=== PATIENT | male | born 1965 | race Caucasian/White ===

== ENCOUNTER 2017-05-18 15:46 | Emergency (ER) | payer BC ==
[~2017-05-18] VITALS: Ht 185.4 cm; Wt 91.5 kg
[~2017-05-18 15:46] MED LIST: ONDA4TAB7 SL
[2017-05-18 15:48] VITALS: TEMP 36.9; Ht 185.4 cm; Wt 91.5 kg
[2017-05-18] MEDS: ONDANSETRON INJ 2 MG/ML 2 ML VIAL IV STA ×2 (15:59→16:51)
[2017-05-18] MEDS ORDERED: SODIUM CHLORIDE 0.9% 1000ML 1,000 ML IV STA (15:59)
[2017-05-18] MEDS ORDERED: MoRPHine SULFATE 10 MG/ML CARP/VIAL IV STA (15:59)
[2017-05-18] MEDS ORDERED: OPTIRAY 320 IV PRN (16:15)
[2017-05-18] MEDS ORDERED: ACET-1256 PO (16:28)
[2017-05-18 16:55] LABS: BASO % 0.4 %; BASO ABS # 0.03 K/uL (0-0.2); COMPLETE YES; EOS % 1.5 %; IG% 0.1 %; LYMPH % 16.8 %; LYMPH ABS # 1.14 K/uL (1.2-3.4); MEAN CELL VOLUME 87.6 fL (80-100); MEAN CORPUSCULAR HEMOGLOBIN 30.8 pg (25-34); MEAN CORPUSCULAR HGB CONC 35.1 g/dl (32-36); MEAN PLATELET VOLUME 9.6 fL (7.4-10.4); MONO % 9.6 %; NEUT % 71.6 %; PLATELET COUNT 257 K/uL (130-400); RED BLOOD COUNT 5.82 M/uL (4.7-6.1)
[2017-05-18 17:14] LABS: BUN/CREATININE RATIO 10.4 (10-20); CALCIUM 9.8 mg/dl (8.5-10.1); CREATININE 1.22 mg/dl (0.60-1.40); POTASSIUM 3.1 mmol/L (3.5-5.1)
--- NOTE | 2017-05-18 17:56 | DIAGNOSTIC IMAGING REPORT ---
ABD/PELVIS IV CONTRAST ONLY HISTORY: 52 years-old Male periumbilical abd pain acute periumbilical abdominal pain. Initial exam. COMPARISON: None available TECHNIQUE: Multiple axial CT images of the abdomen and pelvis were obtained following the intravenous administration of 116 mL Optiray 320. A dose lowering technique was used consistent with the principals of SURESH. FINDINGS: Cardiac chambers are mildly enlarged. Coronary arterial calcifications are present. Imaged inferior lung bases are generally clear with a few scattered subcentimeter calcified granulomas. Subsegmental atelectasis is seen dependently. 2 mm noncalcified nodule of the right lower lobe on image 7 series 3 is noted, likely benign. No pneumoperitoneum. The liver, spleen, gallbladder, and right adrenal gland are within normal limits. Thickening of the left adrenal gland suggesting adrenal hyperplasia. There is an indeterminate ovoid circumscribed low attenuating 10 x 6 mm cystic-appearing structure in the region of the uncinate process pancreas on image 147 series 3. No pancreatic ductal dilation or associated inflammatory stranding. No intrahepatic biliary ductal dilation. Kidneys and ureters are within normal limits. Probable cyst of the superior pole left kidney is seen, 5 mm. Enhancing tissue at the level of the urinary bladder base suggests prostatic hypertrophy. Mild wall thickening of the bladder noted. There is increased attenuation within the region of the right ureterovesicular junction of the posterior bladder on image 35 series 3 suggests ureteral jet. Moderate atherosclerotic plaquing of the abdominal aorta. No aneurysm identified. Note is made of retroaortic left renal vein. No bulky adenopathy. No bowel obstruction or focal bowel wall thickening. Moderate to extensive diverticulosis of the sigmoid colon without evidence of acute diverticulitis. The appendix is nicely seen on image 340 of series 3 and appears normal. No evidence of acute appendicitis. Mild rectal wall thickening without surrounding inflammatory stranding. Small fat filled periumbilical hernia, diastases 1.2 cm. Degenerative changes of the bilateral SI joints. There is facet arthrosis of the lower lumbar spine which is at least moderate. Posterior disc osteophyte complex at L4-L5 cause at least mild central canal narrowing. IMPRESSION: 1. Mild rectal wall thickening may be secondary to nondistention. No associated inflammatory stranding to suggest proctitis. This could be correlated with direct visualization. 2. Moderate to extensive sigmoid diverticulosis without CT evidence of acute diverticulitis. 3. Normal appendix. 4. Prostamegaly with mild urinary bladder wall thickening, possibly related to sequela of chronic bladder outlet obstruction. Correlate with urinalysis. 5. Cystic appearing lesion of the uncinate process pancreas, 10 x 6 mm. This may reflect a sidebranch IPMN, however is nonspecific. Follow-up abdominal MRI in one year is recommended according to the [employer] guidelines. The above report was generated using voice recognition software. It may contain grammatical, syntax or spelling errors. Electronically signed by: Baltazar Paris M.D. 05/18/2017 5:55 PM Dictated Date/Time: 05/18/2017 5:45 PM
[2017-05-18] MEDS ORDERED: POTASSIUM CHLORIDE 10 MEQ TABCR PO STA (18:03)
[2017-05-18] MEDS ORDERED: SIMV20TA2 PO (18:10)
[2017-05-18] MEDS ORDERED: ATEN-175 PO (18:10)
[2017-05-18] MEDS ORDERED: AMLO-114 PO (18:10)
[2017-05-18] MEDS ORDERED: LISI40TA PO (18:10)
[2017-05-18 18:11] LABS: URINE APPEARANCE CLEAR (CLEAR); URINE BILIRUBIN NEG (NEG); URINE COLOR YELLOW; URINE NITRITE NEG (NEG); URINE SPECIFIC GRAVITY 1.017 (1.000-1.030); UROBILINOGEN NEG (NEG); ZZUR CULT IF INDIC CLEAN CATCH NO
[2017-05-18 18:28] LABS: MANUAL MICROSCOPIC REQUIRED? NO; REVIEW REQ? NO
[2017-05-18] MEDS ORDERED: ONDA4TAB65 PO (19:06)
[2017-05-18] MEDS ORDERED: ONDANSETRON HOME PACK 4MG OD TAB PO ONE (19:15)
[2017-05-18 19:29] VITALS: BP 170/99; PULSE 78; O2SAT 99
--- NOTE | 2017-05-18 19:35 | EMERGENCY ROOM VISIT NOTE ---
History Report prepared by Troyibkhloe: Ministerio Garrido Under the Supervision of: Dr. Tyrese Gonzalez D.O. First contact with patient: 15:51 Chief Complaint: ABDOMINAL PAIN Stated Complaint: STOMACH PAINS-PHYSICIAN REFERRED History of Present Illness The patient is a 52 year old male who presents to the Emergency Room with complaints of waxing and waning abdominal "pressure" beginning yesterday. He also complains of nausea. He notes he feels a gate has to have a bowel movement. He has had three episodes of diarrhea. The patient has no history of similar symptoms. He denies any vomiting, groin pain, or fevers. He rates his current pain as a 6/10 in severity, but states that it was a "20/10" last night. The patient called his PCP today and was referred to the ED. He notes that he had a teriyaki sandwich before his symptoms began. He states "it felt like I was 9 months ". Patient denies any chest pain, shortness breath , headache, change in vision, or urinary symptoms. No cough or runny nose. No previous abdominal surgeries. Source of History: patient Onset: Yesterday Position: abdomen Symptom Intensity: 6/10 Timing: waxes/wanes Associated Symptoms: + nausea, + diarrhea (three episodes), No fevers, No vomiting Note: The patient denies any groin pain. Review of Systems See HPI for pertinent positives & negatives. A total of 10 systems reviewed and were otherwise negative. Past Medical & Surgical Medical Problems: (1) No pertinent past medical history Family History Patient reports no known family medical history. Social History Smoking Status: Never Smoker Alcohol Use: occasionally Drug Use: none Occupation Status: employed Current/Historical Medications Scheduled Acetaminophen (Tylenol), 1,000 MG PO Q6 Amlodipine (Norvasc), 10 MG PO DAILY Atenolol (Tenormin), 100 MG PO DAILY Lisinopril (Zestril), 40 MG PO DAILY Simvastatin (Zocor), 20 MG PO QPM Scheduled PRN Ondansetron Hcl (Zofran), 4 MG PO TID PRN for Nausea Allergies Coded Allergies: Azithromycin (Verified Allergy, Unknown, Vomiting, 03/21/15) Reported by PT Physical Exam Vital Signs Date Time Temp Pulse Resp B/P (MAP) Pulse Ox O2 Delivery O2 Flow Rate FiO2 05/18/17 19:29 78 20 170/99 99 Room Air 05/18/17 19:25 20 170/99 98 05/18/17 18:00 78 20 176/88 98 05/18/17 17:19 60 20 172/99 98 Room Air 05/18/17 15:48 36.9 83 18 155/121 97 Room Air Physical Exam GENERAL: Sitting up in bed, disheveled, minimal distress, holding abdomen. EYE EXAM: normal conjunctiva. OROPHARYNX: no exudate, no erythema, lips, buccal mucosa, and tongue normal and mucous membranes are moist NECK: supple, no nuchal rigidity, no adenopathy, non-tender LUNGS: Clear to auscultation. Normal chest wall mechanics HEART: no murmurs, S1 normal and S2 normal ABDOMEN: abdomen soft, normo-active bowel sounds, no masses, no rebound or guarding. Tender to palpation in the umbilical area. BACK: Back is symmetrical on inspection and there is no deformity, no midline tenderness, no CVA tenderness. SKIN: no rashes and no bruising UPPER EXTREMITIES: upper extremities are grossly normal. LOWER EXTREMITIES: No pitting edema. NEURO EXAM: Normal sensorium, cranial nerves II-XII grossly intact, normal speech, no gross weakness of arms, no gross weakness of legs. Medical Decision & Procedures ER Provider Diagnostic Interpretation: CT:Per my review, radiologist interpretation. ABD/PELVIS IV CONTRAST ONLY FINDINGS: Cardiac chambers are mildly enlarged. Coronary arterial calcifications are present. Imaged inferior lung bases are generally clear with a few scattered subcentimeter calcified granulomas. Subsegmental atelectasis is seen dependently. 2 mm noncalcified nodule of the right lower lobe on image 7 series 3 is noted, likely benign. No pneumoperitoneum. The liver, spleen, gallbladder, and right adrenal gland are within normal limits. Thickening of the left adrenal gland suggesting adrenal hyperplasia. There is an indeterminate ovoid circumscribed low attenuating 10 x 6 mm cystic-appearing structure in the region of the uncinate process pancreas on image 147 series 3. No pancreatic ductal dilation or associated inflammatory stranding. No intrahepatic biliary ductal dilation. Kidneys and ureters are within normal limits. Probable cyst of the superior pole left kidney is seen, 5 mm. Enhancing tissue at the level of the urinary bladder base suggests prostatic hypertrophy. Mild wall thickening of the bladder noted. There is increased attenuation within the region of the right ureterovesicular junction of the posterior bladder on image 35 series 3 suggests ureteral jet. Moderate atherosclerotic plaquing of the abdominal aorta. No aneurysm identified. Note is made of retroaortic left renal vein. No bulky adenopathy. No bowel obstruction or focal bowel wall thickening. Moderate to extensive diverticulosis of the sigmoid colon without evidence of acute diverticulitis. The appendix is nicely seen on image 340 of series 3 and appears normal. No evidence of acute appendicitis. Mild rectal wall thickening without surrounding inflammatory stranding. Small fat filled periumbilical hernia, diastases 1.2 cm. Degenerative changes of the bilateral SI joints. There is facet arthrosis of the lower lumbar spine which is at least moderate. Posterior disc osteophyte complex at L4-L5 cause at least mild central canal narrowing. IMPRESSION: 1. Mild rectal wall thickening may be secondary to nondistention. No associated inflammatory stranding to suggest proctitis. This could be correlated with direct visualization. 2. Moderate to extensive sigmoid diverticulosis without CT evidence of acute diverticulitis. 3. Normal appendix. 4. Prostamegaly with mild urinary bladder wall thickening, possibly related to sequela of chronic bladder outlet obstruction. Correlate with urinalysis. 5. Cystic appearing lesion of the uncinate process pancreas, 10 x 6 mm. This may reflect a sidebranch IPMN, however is nonspecific. Follow-up abdominal MRI in one year is recommended according to the [employer] guidelines. The above report was generated using voice recognition software. It may contain grammatical, syntax or spelling errors. Electronically signed by: Baltazar Paris M.D. 05/18/2017 5:55 PM Laboratory Results 05/18/17 16:45 Red Blood Count 5.82, Mean Corpuscular Volume 87.6, Mean Corpuscular Hemoglobin 30.8, Mean Corpuscular Hemoglobin Concent 35.1, Mean Platelet Volume 9.6, Neutrophils (%) (Auto) 71.6, Lymphocytes (%) (Auto) 16.8, Monocytes (%) (Auto) 9.6, Eosinophils (%) (Auto) 1.5, Basophils (%) (Auto) 0.4, Neutrophils # (Auto) 4.87, Lymphocytes # (Auto) 1.14, Monocytes # (Auto) 0.65, Eosinophils # (Auto) 0.10, Basophils # (Auto) 0.03 05/18/17 16:45 Test 05/18/17 16:45 05/18/17 17:20 White Blood Count 6.80 K/uL (4.8-10.8) Red Blood Count 5.82 M/uL (4.7-6.1) Hemoglobin 17.9 g/dL (14.0-18.0) Hematocrit 51.0 % (42-52) Mean Corpuscular Volume 87.6 fL (80-100) Mean Corpuscular Hemoglobin 30.8 pg (25-34) Mean Corpuscular Hemoglobin Concent 35.1 g/dl (32-36) Platelet Count 257 K/uL (130-400) Mean Platelet Volume 9.6 fL (7.4-10.4) Neutrophils (%) (Auto) 71.6 % Lymphocytes (%) (Auto) 16.8 % Monocytes (%) (Auto) 9.6 % Eosinophils (%) (Auto) 1.5 % Basophils (%) (Auto) 0.4 % Neutrophils # (Auto) 4.87 K/uL (1.4-6.5) Lymphocytes # (Auto) 1.14 K/uL (1.2-3.4) Monocytes # (Auto) 0.65 K/uL (0.11-0.59) Eosinophils # (Auto) 0.10 K/uL (0-0.5) Basophils # (Auto) 0.03 K/uL (0-0.2) RDW Standard Deviation 40.5 fL (36.4-46.3) RDW Coefficient of Variation 12.8 % (11.5-14.5) Immature Granulocyte % (Auto) 0.1 % Immature Granulocyte # (Auto) 0.01 K/uL (0.00-0.02) Anion Gap 6.0 mmol/L (3-11) Est Creatinine Clear Calc Drug Dose 78.2 ml/min Estimated GFR () 77.4 Estimated GFR (Non- 66.8 BUN/Creatinine Ratio 10.4 (10-20) Calcium Level 9.8 mg/dl (8.5-10.1) Total Bilirubin 0.6 mg/dl (0.2-1) Direct Bilirubin 0.2 mg/dl (0-0.2) Aspartate Amino Transf (AST/SGOT) 18 U/L (15-37) Alanine Aminotransferase (ALT/SGPT) 35 U/L (12-78) Alkaline Phosphatase 94 U/L (45-117) Total Protein 8.9 gm/dl (6.4-8.2) Albumin 4.7 gm/dl (3.4-5.0) Lipase 318 U/L (73-393) Urine Color YELLOW Urine Appearance CLEAR (CLEAR) Urine pH 7.0 (4.5-7.5) Urine Specific [place] 1.017 (1.000-1.030) Urine Protein NEG (NEG) Urine Glucose (UA) TRACE (NEG) Urine Ketones NEG (NEG) Urine Occult Blood NEG (NEG) Urine Nitrite NEG (NEG) Urine Bilirubin NEG (NEG) Urine Urobilinogen NEG (NEG) Urine Leukocyte Esterase NEG (NEG) Urine WBC (Auto) 1-5 /hpf (0-5) Urine RBC (Auto) 0-4 /hpf (0-4) Urine Hyaline Casts (Auto) 1-5 /lpf (0-5) Urine Epithelial Cells (Auto) 5-10 /lpf (0-5) Urine Bacteria (Auto) NEG (NEG) Laboratory results per my review. Medications Administered Medications (Trade) Dose Ordered Sig/[place] Route Start Time Stop Time Status Last Admin Dose Admin Sodium Chloride 1,000 ml @ 999 mls/hr Q1H1M STAT IV 05/18/17 15:59 05/18/17 16:59 DC 05/18/17 16:50 999 MLS/HR Morphine Sulfate (MoRPHine SULFATE INJ) 6 mg NOW STAT IV 05/18/17 15:59 05/18/17 16:01 DC 05/18/17 16:51 6 MG Potassium Chloride (Klor-Con M10) 40 meq NOW STAT PO 05/18/17 18:03 05/18/17 18:04 DC 05/18/17 19:19 40 MEQ Ondansetron HCl (ZOFRAN ODT 4MG Home Pack) 1 homepack UD ONCE PO 05/18/17 19:15 05/18/17 19:16 DC 05/18/17 19:19 1 HOMEPACK ED Course ED COURSE: Vital signs were reviewed and showed mild hypertension. The patients medical record was reviewed The above diagnostic studies were performed and reviewed. ED treatments and interventions as stated above. 1553: The patient was evaluated in room C1B. A complete history and physical examination was performed. 155: Ordered Morphine Sulfate 6 mg IV, Zofran Inj 4 mg IV, Sodium Chloride 1000 ml @ 999 mls/hr IV. 164: I reassessed the patient. He has just had his blood drawn. 1802: Ordered Klor-Con M10 40 meq PO. 1815: The patient vomited. He declines any medication for nausea. 1844: Upon reevaluation, the patient is resting comfortably. I discussed my findings with the patient and he understands and agrees with the treatment plan. Based on the patients age, coexisting illnesses, exam and lab findings the decision to treat as an outpatient was made. The patient remained stable while under my care. The patient appeared well at the time of discharge. Medical Decision Differential diagnoses includes but is not limited to gastritis, peptic ulcer disease, GERD, gallbladder disease, pancreatitis, small bowel obstruction, acute coronary syndrome, pericarditis, ischemic bowel, irritable bowel disease, irritable bowel syndrome, appendicitis, diverticulitis, malignancy, hernia, urinary tract infection, torsion, perforation, trauma, infectious. Patient is a 52-year-old male who presents to ER for abdominal fullness/pain which is present for over 24 hours. He was referred in by his PCP. No previous abdominal surgeries. No significant past medical history. Abdominal exam is fairly benign. CBC was unremarkable. BMP shows a mild hypokalemia. LFTs all bilirubin lipase is unremarkable. UA shows no signs of infection. CT of the abdomen and pelvis shows a pancreatic cyst which she was updated in regards to along with his and child. He will have this followed up on by his PCP within [address] also showed a questionable thickening of the rectum. He has no dysuria urgency or frequency. Nothing to suggest prostatitis. Patient was given IV fluids and morphine. After the morphine did become sick. He notes that this does happen with surgeries. He declined antiemetics as he notes is normally makes it worse. He was updated bedside. He was discharged follow-up with PCP. Discussed with Pt concerning signs and symptoms to watch out for. Pt was instructed to follow up with their PCP and discussed with the patient their option to return to the ED at anytime for persistent or worsening symptoms. The appropriate anticipatory guidance and out- patient management, including indications for return to the emergency department , were explained at length to the patient and understood. Medication Reconcilliation Current Medication List: was personally reviewed by me Blood Pressure Screening Patient's blood pressure: Elevated blood pressure Blood pressure disposition: Elevated BP felt to be situational Impression Primary Impression: Abdominal pain Additional Impressions: Pancreas cyst Vomiting Scribe Attestation The scribe's documentation has been prepared under my direction and personally reviewed by me in its entirety. I confirm that the note above accurately reflects all work, treatment, procedures, and medical decision making performed by me. Departure Information Dispostion Home / Self-Care Prescriptions Ondansetron Hcl (ZOFRAN) 4 Mg Tab 4 MG PO TID Y for Nausea, #20 TAB Prov: Tyrese Gonzalez, DO 05/18/17 Referrals Norman Alonso, D.OArcelia (PCP) Forms Call Back Authorization, HOME CARE DOCUMENTATION FORM, IMPORTANT VISIT INFORMATION Patient Instructions Abdominal Pain - [facility], My [facility] Additional Instructions Please follow up with your primary care doctor with in the next 24 hours. Any worsening of your symptoms, please return to the ED immediately. This includes any fevers greater than 100.4, worsening pain, chest pain, shortness breath, persistent nausea, vomiting, unable to eat or drink, blood in her stool, dark tarry stools, or any other concerning signs or symptoms from your standpoint. You were given medications during this visit that will inhibit your ability to drive, operate machinery and work. Please do NOT drive, operate machinery, drink alcohol or work for the next 12hrs. Problem Qualifiers Primary Impression: Abdominal pain Abdominal location: unspecified location Qualified Codes: R10.9 - Unspecified abdominal pain Additional Impressions: Vomiting Vomiting type: unspecified Vomiting Intractability: unspecified Nausea presence: unspecified Qualified Codes: R11.10 - Vomiting, unspecified
== END 2017-05-18 19:27 | disposition home or self-care (01) ==
LOC: C.EDB 15:47 → C.EDC 19:27
DX: K86.2 Cyst of pancreas (principal); R10.9 Unspecified abdominal pain; R11.10 Vomiting, unspecified; Z79.899 Other long term (current) drug therapy; Z88.1 Allergy status to other antibiotic agents